=== PATIENT | female | born 1975 | race Two or more races ===

== ENCOUNTER 2019-03-02 08:47 | Emergency (ER) | payer MEDICAID ==
[~2019-03-02] VITALS: Ht 160 cm; Wt 63.5 kg
--- NOTE | 2019-03-02 09:03 | NUR ---
PT BROUGHT IN BY WHEEL CHAIR ACCOMPANIED BY FAMILY FOR C/C RLE PAIN AND BRUISING, HITTING A METAL POLE AT 0400 TODAY WILL CONTINUE TO MONITOR
[2019-03-02] MEDS ORDERED: ACETAMINOPHEN 325 MG TABLET ONE (09:38)
[2019-03-02] MEDS ORDERED: IBUPROFEN 600 MG TABLET PO ONE ×2 (09:38→10:00)
[2019-03-02] MEDS ORDERED: ACETAMINOPHEN 325 MG TABLET PO ONE (10:00)
[2019-03-02 10:23] VITALS: BP 132/73
--- NOTE | 2019-03-02 10:25 | NUR ---
PT DISCHARGED TO HOME WILL FOLLOW UP WITH PCP GIVEN ACI AND PRESCRIPTION AMBUALTED WITH FAMILY MEMBER
== END 2019-03-02 10:26 | disposition home or self-care (01) ==
LOC: ER 08:50
DX: S80.11XA Contusion of right lower leg, initial encounter (principal); W22.8XXA Striking against or struck by other objects, initial encounter; Y93.89 Activity, other specified; Y92.89 Other specified places as the place of occurrence of the external cause; Y99.8 Other external cause status
CPT/HCPCS: 73590-TC